=== PATIENT | female | born 1970 | race Caucasian/White ===

== ENCOUNTER 2022-02-17 10:07 | Emergency (ER) | payer OTHER ==
[2022-02-17 10:24] VITALS: BP 128/76; PULSE 114; RESP 22; TEMP 98.6
[2022-02-17] MEDS ORDERED: HYDROmorphone 0.5 MG/0.5 ML SYRINGE IM STA (10:57)
[2022-02-17] MEDS ORDERED: LIDOCAINE 1% INJ 10MG/ML (5 ML VIAL-PF) SQ ONE (10:57)
[2022-02-17] MEDS ORDERED: SULFAMETHOX-TMP 800-160MG 1 EACH TAB PO STA (10:58)
--- NOTE | 2022-02-17 12:23 | ED ---
Skin/Abscess/FB HPI - General Chief complaint: Skin/Abscess/Foreign Body Stated complaint: Abcess/groin pain Time Seen by Provider: 02/17/22 10:26 Source: patient, RN notes reviewed Mode of arrival: ambulatory Limitations: no limitations - History of Present Illness Initial comments: This is a 51-year-old female who presents to the emergency department for an abscess to the lower abdomen. Patient states that she frequently gets very similar abscesses, however they always resolve on their own and she has never had to have them drained. Her roommate bought her [id number] Boil-Ease, which she states did improve symptoms. She does continue to have significant pain and swelling to the right side of the lower abdomen. She has not had any drainage from the wound, and she has not tried squeezing it. This abscess has been progressing over the last week. Denies any fevers, chills, sore throat, cough, dyspnea, chest pain, palpitati ons, nausea, vomiting, diarrhea, back pain, or headaches. MD complaint: abscess/boil Onset/Timin -: week(s) Treatments Prior to Arrival: OTC topical medication - Related Data Previous Rx's Medication Instructions Recorded Baclofen 10 mg PO TID #20 tab 09/05/15 Butalb/APAP/Caff 50-325-40Mg 1 tab PO BID #15 tablet 09/05/15 [Fioricet 50-325-40] Gabapentin 600 mg PO TID 10 Days tab 09/05/15 Ibuprofen [Motrin] 800 mg PO TID #30 tab 09/05/15 Sulfamethox-Tmp 800-160Mg [Bactrim 2 each PO Q12HR 7 Days #28 tab 02/17/22 Ds] Allergies Allergy/AdvReac Type Severity Reaction Status Date / Time Yeast Allergy Unknown Verified 02/17/22 10:24 heparin AdvReac Unknown Verified 02/17/22 10:24 Review of Systems ROS Statement: Those systems with pertinent positive or pertinent negative responses have been documented in the HPI. ROS Other: All systems not noted in ROS Statement are negative. Past Medical History Past Medical History: GERD/Reflux, Hypertension, Osteoarthritis (OA), Pulmonary Embolus (PE), Sleep Apnea/CPAP/BIPAP Additional Past Medical History / Comment(s): back pain ddd sleep apnea, neuropathy History of Any Multi-Drug Resistant Organisms: None Reported, MRSA Date of last positivie culture/infection: 2007 MDRO Source:: face Past Surgical History: Adenoidectomy, Section, Orthopedic Surgery, Tonsillectomy Additional Past Surgical History / Comment(s): lung surgery, sinus surgery Past Psychological History: ADD/ADHD, Anxiety, Depression Smoking Status: Former smoker Past Alcohol Use History: Rare Past Drug Use History: None Reported General Exam Limitations: no limitations General appearance: alert, in distress Head exam: Present: atraumatic, normocephalic, normal inspection Respiratory exam: Present: normal lung sounds bilaterally. Absent: respiratory distress, wheezes, rales, rhonchi, stridor Cardiovascular Exam: Present: regular rate, normal rhythm, normal heart sounds. Absent: systolic murmur, diastolic murmur, rubs, gallop, clicks Neurological exam: Present: alert, oriented X3, CN II-XII intact Psychiatric exam: Present: normal affect, normal mood Skin exam: Present: other (Palpable fluctuant abscess measuring approximately 3cm underneath the right lower abdominal fold with 2 pinpoint areas that may represent recent drainage. There is significant surrounding induration and erythema. The area is also very warm and tender.) Course Vital Signs 02/17/22 10:21 Temperature 98.6 F Pulse Rate 114 H Respiratory 22 Rate Blood Pressure 128/76 O2 Sat by Pulse 95 Oximetry Procedures - Incision & Drainage Consent Obtained: verbal consent Indication: Abscess Site: abdomen Size (cm): 3 Anesthetic Used: lidocaine 1% Amount (mLs): 3 I&D Cleaning Method: Alcohol Wipe Sterile Field Used?: Yes Scalpel Used: #11 Needle Aspiration Performed?: No Irrigation Performed?: Yes I&D Drainage Obtained: Pus, Blood Culture Obtained?: Yes Medical Decision Making - Medical Decision Making This is a 51-year-old female who presents to the emergency department for an abscess on the abdomen. I&D was performed and a copious amount of purulent and serosanguineous fluid was expressed. Cultures were obtained. Patient given 1 dose of Bactrim in the emergency department. Patient will be discharged on a course of Bactrim as well, as she has a history of MRSA and this was purulent. While waiting in the exam room, patient began to develop abdominal muscle spasms. She states that this is a chronic problem for her and she takes Flexeril 3 times daily, however she notes that this is not very effective. Patient given IM Norflex in the emergency department. Patient advised that the abscess will continue to drain over the next few days, which should not be alarming. She is advised to apply hot compresses and keep the area covered. Also advised to take the antibiotics as prescribed and to take Ibuprofen and Tylenol for pain relief. She'll need to follow-up with her primary care provider in the next few days to ensure that this is healing well. We did discuss that there is always a chance for abscesses to recur, and she may need an I&D again in the future if it does recur. Patient expresses understanding. Return precautions reviewed in depth, the patient is instructed to return to the emergency department with any new, worsening, or concerning symptoms. Patient verbalized understanding. This case was discussed in detail with the attending ED physician. Presentation, findings, and treatment plan discussed in detail as well. Disposition Clinical Impression: Abscess, abdomen Disposition: HOME SELF-CARE Instructions (If sedation given, give patient instructions): Abscess Incision and Drainage (ED), Abscess (ED) Additional Instructions: Return to the emergency department with any new, worsening, or concerning sym ptoms. Expect drainage for the next few days. Take the antibiotic as prescribed. Apply hot compresses to further express any fluids. Follow up with your primary care provider in 1-2 days. Prescriptions: Sulfamethox-Tmp 800-160Mg [Bactrim Ds] 2 each PO Q12HR 7 Days #28 tab Is patient prescribed a controlled substance at d/c from ED?: No Referrals: Vernon Kramer [Primary Care Provider] - 1-2 days
[2022-02-17] MEDS ORDERED: ORPHENADRINE 30 MG/ML 2 ML VIAL IM STA (12:35)
== END 2022-02-17 12:58 | disposition home or self-care (01) ==
LOC: EC 10:07
DX: K65.1 Peritoneal abscess (principal); K21.9 Gastro-esophageal reflux disease without esophagitis; Z79.83 Long term (current) use of bisphosphonates; I10 Essential (primary) hypertension; Z87.891 Personal history of nicotine dependence; Z88.8 Allergy status to other drugs, medicaments and biological substances; Z91.018 Allergy to other foods
CPT/HCPCS: 87070; 87205; 10060; 99283; 96372; J2360; J2001; J1170

== ENCOUNTER → 2022-03-17 | Outpatient (CLI) | payer MEDICARE, OTHER | END | disposition home or self-care (01) | LOC: CPPFTMAIN 14:41 | PROVIDERS: ATTEND Family Medicine | DX: R06.2 Wheezing (principal) | CPT/HCPCS: 94060; 94726; 94729 ==

== ENCOUNTER → 2022-04-07 | Outpatient (CLI) | payer MEDICARE, OTHER ==
--- NOTE | 2022-04-07 19:27 | CT ---
EXAMINATION TYPE: CT abdomen pelvis w con CT DLP: 2436 mGycm, Automated exposure control for dose reduction was used. DATE OF EXAM: 04/07/2022 6:12 PM COMPARISON: None. CLINICAL INDICATION:Female, 52 years old with history of K46.9 UNSPECIFIED ABDOMINAL HERNIA; abdomina l hernia TECHNIQUE: Axial CT of the abdomen and pelvis. Sagittal and coronal reformats were created on a [employer] workstation. Contrast used:100 mL of Isovue 300 with IV Contrast, Oral contrast used: with Oral Contrast FINDINGS: LOWER CHEST: Unremarkable ABDOMEN LIVER: Diffusely hypoattenuating parenchyma. GALLBLADDER AND BILE DUCTS: Fundal adenomyomatosis suggested. PANCREAS: Unremarkable. SPLEEN: Unremarkable. ADRENAL GLANDS: Unremarkable. KIDNEYS AND URETERS: No evidence of hydronephrosis or renal calculus. The ureters are unremarkable. PELVIS BLADDER: Unremarkable REPRODUCTIVE: Unremarkable. ABDOMEN & PELVIS STOMACH AND BOWEL: No evidence of bowel obstruction. Appendix is normal. Scattered clonic diverticula are seen throughout the colon. PERITONEUM: No evidence of pneumoperitoneum or free fluid. VASCULATURE: Mild atherosclerotic calcifications are present throughout the abdominal aorta and its b ranches. No evidence of aortic aneurysm. MUSCULOSKELETAL: No acute osseous abnormalities. Mild disc degeneration changes are present throughou t the thoracolumbar spine. Multilevel disc degeneration changes throughout the lumbar spine with at l east mild spinal canal stenosis. LYMPH NODES: No gross evidence for lymphadenopathy. SOFT TISSUE/ABDOMINAL WALL: Fat filled umbilical hernia measuring 0.7 cm at the neck. Diastases of th e rectus abdominis. IMPRESSION: 1. Small fat-containing umbilical hernia. No additional hernias identified. 2. No evidence for acute intra-abdominal process. 3. Colonic diverticulosis. 4. Hepatic steatosis 5. Gallbladder fundal adenomyomatosis suggested.
== END | disposition home or self-care (01) ==
LOC: RADCTMAIN 15:41
PROVIDERS: ATTEND Family Medicine
DX: K46.9 Unspecified abdominal hernia without obstruction or gangrene (principal)
CPT/HCPCS: 74177; Q9967

== ENCOUNTER → 2022-06-26 | Outpatient (CLI) | payer MEDICARE, OTHER ==
--- NOTE | 2022-06-26 10:19 | MR ---
EXAMINATION TYPE: MR lumbar spine wo/w con DATE OF EXAM: 06/26/2022 COMPARISON: Plain film 02/27/2015 HISTORY: Lumbar Spinal Stenosis, chronic pain TECHNIQUE: Multiplanar, multisequence images of the lumbar spine were acquired without and with 11 mL intravenou s Gadavist gadolinium contrast. There are only 4 lumbar nonrib-bearing vertebral bodies, correlate with plain film or CT prior to any intervention L1-L2: Normal disc appearance without desiccation. No herniation, protrusion or disc bulging. No ca nal stenosis is present. Foramina are patent bilaterally. L2-L3: Posterior disc bulge causes slight anterior mass effect on the thecal sac. No significant fora lidia encroachment. There is facet arthropathy change. L3-L4: Posterior broad-based disc bulge extensor compartment to cause foraminal encroachment more so on the right than on the left, posterior broad-based disc bulge causes anterior mass effect on the th ecal sac. There is facet arthropathy change. L4-S1: Posterior central disc herniation causes mild anterior mass effect on the thecal sac, circumfe rential extension endplate disc complex causes encroachment of the bilateral foramina. Facet arthropa thy changes present. There is likely mass effect due to the posterior disc herniation in the left pos terior paracentral location on the left S1 nerve root. Lumbar segments are intact. No paraspinal masses are identified. Conus medullaris has a normal appe arance and terminates at T12. No significant spinal stenosis. Loss of disc height signal is present a t intervertebral levels consistent with disc desiccation and degenerative disc disease, L1-T12 L1 rel atively spared. There is multilevel spondylosis with endplate discogenic marrow signal change. Vacuum phenomenon present at intervertebral levels L2-3, L4 S1, L3-4. Following contrast administration no significant abnormal enhancement. There is some motion on exam, artifact. Cortical cyst present at the lower pole the right kidney. IMPRESSION: Degenerative disc disease, facet arthropathy, multilevel foraminal encroachment. Correlate for left S 1 radiculopathy.
== END | disposition home or self-care (01) ==
LOC: RADMAMWWP 07:25
PROVIDERS: ATTEND Family Medicine
DX: Z12.31 Encounter for screening mammogram for malignant neoplasm of breast (principal); M48.061 Spinal stenosis, lumbar region without neurogenic claudication; G62.9 Polyneuropathy, unspecified
CPT/HCPCS: 77067; 77063; 72158; A9585

== ENCOUNTER → 2022-06-30 | Outpatient (CLI) | payer MEDICARE, OTHER | END | disposition home or self-care (01) | LOC: LABWHC1 10:41 | PROVIDERS: ATTEND Family Medicine | DX: Z01.818 Encounter for other preprocedural examination (principal) | CPT/HCPCS: 36415; 93005 ==

== ENCOUNTER 2022-07-12 17:52 | Emergency (ER) | payer MEDICARE, OTHER ==
[2022-07-12 18:03] VITALS: BP 170/80; PULSE 94; TEMP 98.8
[2022-07-12] MEDS ORDERED: CEPHALEXIN 500 MG CAP PO STA (19:55)
[2022-07-12] MEDS ORDERED: MORPHINE SULFATE 4 MG/ML SYRINGE IM STA (19:55)
[2022-07-12] MEDS ORDERED: SULFAMETHOX-TMP 800-160MG 1 EACH TAB PO STA (19:55)
--- NOTE | 2022-07-12 20:24 | ED ---
General Adult HPI - General Chief complaint: Vaginal Bleeding Stated complaint: Post-op issues Time Seen by Provider: 07/12/22 19:35 Source: patient Mode of arrival: ambulatory Limitations: no limitations - History of Present Illness Initial comments: Patient is a 52-year-old female presenting with chief complaint of pain and discharge from the biopsy site. About one week ago patient had labial biopsy performed by Dr. Leon at [facility]. Patient states that for the last 2 days she has noted increasing pain, she also notes a discharge that is light red in color. Patient states that she cannot sit without extreme discomfort. Patient has been cleaning the area as instructed and gabbing to dry. She denies any fever, chills, nausea, vomiting, abdominal pain, vaginal bleeding or discharge, chest pain, difficulty breathing. - Related Data Previous Rx's Medication Instructions Recorded Baclofen 10 mg PO TID #20 tab 09/05/15 Butalb/APAP/Caff 50-325-40Mg 1 tab PO BID #15 tablet 09/05/15 [Fioricet 50-325-40] Gabapentin 600 mg PO TID 10 Days tab 09/05/15 Ibuprofen [Motrin] 800 mg PO TID #30 tab 09/05/15 Sulfamethox-Tmp 800-160Mg [Bactrim 2 each PO Q12HR 7 Days #28 tab 02/17/22 Ds] Cephalexin [Keflex] 500 mg PO Q6HR 7 Days #28 cap 07/12/22 Sulfamethox-Tmp 800-160Mg [Bactrim 1 tab PO Q12HR 7 Days #14 tab 07/12/22 DS 800-160 mg] Allergies Allergy/AdvReac Type Severity Reaction Status Date / Time Yeast Allergy Unknown Verified 02/17/22 10:24 heparin AdvReac Unknown Verified 02/17/22 10:24 Review of Systems ROS Statement: Those systems with pertinent positive or pertinent negative responses have been documented in the HPI. ROS Other: All systems not noted in ROS Statement are negative. Past Medical History Past Medical History: CVA/TIA, GERD/Reflux, Hypertension, Osteoarthritis (OA), Pulmonary Embolus (PE), Sleep Apnea/CPAP/BIPAP Additional Past Medical History / Comment(s): back pain ddd sleep apnea, neuropathy History of Any Multi-Drug Resistant Organisms: None Reported, MRSA Date of last positivie culture/infection: 2007 MDRO Source:: face Past Surgical History: Adenoidectomy, Section, Orthopedic Surgery, Tonsillectomy Additional Past Surgical History / Comment(s): lung surgery, sinus surgery Past Psychological History: ADD/ADHD, Anxiety, Depression Smoking Status: Former smoker Past Alcohol Use History: Rare Past Drug Use History: None Reported General Exam Limitations: no limitations General appearance: alert, in no apparent distress Head exam: Present: atraumatic, normocephalic, normal inspection Eye exam: Present: normal appearance Neck exam: Present: normal inspection Respiratory exam: Present: normal lung sounds bilaterally. Absent: respiratory distress, wheezes, rales, rhonchi, stridor Cardiovascular Exam: Present: regular rate, normal rhythm, normal heart sounds. Absent: systolic murmur, diastolic murmur, rubs, gallop, clicks Expanded Female exam: Present: vulvar erythema, vulvar tenderness (at biopsy site, small amount of discharge noted, sutures are in place) Neurological exam: Present: alert, oriented X3, CN II-XII intact Psychiatric exam: Present: normal affect, normal mood Course Vital Signs 07/12/22 07/12/22 17:59 20:55 Temperature 98.8 F Pulse Rate 94 Respiratory 20 16 Rate Blood Pressure 170/80 O2 Sat by Pulse 97 Oximetry Medical Decision Making - Medical Decision Making Patient is a 52-year-old female presenting with chief complaint of pain and discharge from her labial biopsy site. Biopsy was performed approximately one week ago. On inspection there is erythema and tenderness around the site, there is small amount of discharge appreciated. Patient will be treated for cellulitis with Keflex and Bactrim, instructed to follow-up with her [employer] [employer] TECHNICIAN this week. Follow-up with PCP. Report back to ER with any new or worsening symptoms. Discussed return parameters and answered all questions. Patient conveyed verbal understanding and agreed to the plan. I discussed this case in detail with my attending Dr. Barrios Disposition Clinical Impression: Infection of labia Disposition: HOME SELF-CARE Condition: Fair Instructions (If sedation given, give patient instructions): Cellulitis (ED) Additional Instructions: Follow up with [facility]AT[facility] TECHNICIAN. Report back to ER with any new or worsening symptoms. Take medication as prescribed. Prescriptions: Sulfamethox-Tmp 800-160Mg [Bactrim DS 800-160 mg] 1 tab PO Q12HR 7 Days #14 tab Cephalexin [Keflex] 500 mg PO Q6HR 7 Days #28 cap Is patient prescribed a controlled substance at d/c from ED?: No Referrals: Russell Ruelas MD [Primary Care Provider] - 1-2 days Luis Angel Leon DO [REFERRING] - 1-2 days Time of Disposition: 20:23
[2022-07-12 20:56] VITALS: RESP 16
== END 2022-07-12 20:56 | disposition home or self-care (01) ==
LOC: EC 17:52
DX: T88.9XXA Complication of surgical and medical care, unspecified, initial encounter (principal); I10 Essential (primary) hypertension; G45.9 Transient cerebral ischemic attack, unspecified; K21.9 Gastro-esophageal reflux disease without esophagitis; M19.90 Unspecified osteoarthritis, unspecified site; I26.99 Other pulmonary embolism without acute cor pulmonale; F90.9 Attention-deficit hyperactivity disorder, unspecified type; F41.9 Anxiety disorder, unspecified; F32.A Depression, unspecified; Z87.891 Personal history of nicotine dependence; Z79.899 Other long term (current) drug therapy; Z79.811 Long term (current) use of aromatase inhibitors; Z91.018 Allergy to other foods
CPT/HCPCS: 99283; 96372; J2270

== ENCOUNTER 2023-09-14 17:27 | Emergency (ER) | payer OTHER ==
[2023-09-14 17:48] VITALS: TEMP 98.7
[2023-09-14] MEDS ORDERED: KETOROLAC 15 MG/ML 1 ML VIAL IVP STA (17:56)
--- NOTE | 2023-09-14 18:04 | ED ---
General Adult HPI - General Chief complaint: Abdominal Pain Stated complaint: Abd Pain,Diverticulitis Time Seen by Provider: 09/14/23 17:39 Source: patient, RN notes reviewed Mode of arrival: ambulatory Limitations: no limitations - History of Present Illness Initial comments: 53-year-old female presents to the emergency department for evaluation of lower abdominal pain 10 days. She states that she has a history of diverticulitis and this feels similar to previous flares. She admits to some recent constipation but she did have a bowel movement this morning. She admits to nausea without vomiting. Denies fever, chills. - Related Data Previous Rx's Medication Instructions Recorded Baclofen 10 mg PO TID #20 tab 09/05/15 Butalb/APAP/Caff 50-325-40Mg 1 tab PO BID #15 tablet 09/05/15 [Fioricet 50-325-40] Gabapentin 600 mg PO TID 10 Days tab 09/05/15 Ibuprofen [Motrin] 800 mg PO TID #30 tab 09/05/15 Sulfamethox-Tmp 800-160Mg [Bactrim 2 each PO Q12HR 7 Days #28 tab 02/17/22 Ds] Cephalexin [Keflex] 500 mg PO Q6HR 7 Days #28 cap 07/12/22 Sulfamethox-Tmp 800-160Mg [Bactrim 1 tab PO Q12HR 7 Days #14 tab 07/12/22 DS 800-160 mg] Amoxic-Pot Clav 875-125Mg 1 tab PO Q12HR #20 tab 09/14/23 [Augmentin 875-125] Allergies Allergy/AdvReac Type Severity Reaction Status Date / Time Yeast Allergy Unknown Verified 02/17/22 10:24 heparin AdvReac Unknown Verified 02/17/22 10:24 Review of Systems ROS Statement: Those systems with pertinent positive or pertinent negative responses have been documented in the HPI. ROS Other: All systems not noted in ROS Statement are negative. Past Medical History Past Medical History: CVA/TIA, GERD/Reflux, Hypertension, Osteoarthritis (OA), Pulmonary Embolus (PE), Sleep Apnea/CPAP/BIPAP Additional Past Medical History / Comment(s): back pain ddd sleep apnea, neuropathy, diverticulitis History of Any Multi-Drug Resistant Organisms: None Reported, MRSA Date of last positivie culture/infection: 2007 MDRO Source:: face Past Surgical History: Adenoidectomy, Section, Orthopedic Surgery, Tonsillectomy Additional Past Surgical History / Comment(s): lung surgery, sinus surgery Past Psychological History: ADD/ADHD, Anxiety, Depression Smoking Status: Former smoker Past Alcohol Use History: Rare Past Drug Use History: None Reported General Exam Limitations: no limitations General appearance: alert, in no apparent distress Head exam: Present: atraumatic, normocephalic, normal inspection Eye exam: Present: normal appearance, PERRL, EOMI. Absent: scleral icterus, conjunctival injection, periorbital swelling ENT exam: Present: normal exam, mucous membranes moist Neck exam: Present: normal inspection. Absent: tenderness, meningismus, lymphadenopathy Respiratory exam: Present: normal lung sounds bilaterally. Absent: respiratory distress, wheezes, rales, rhonchi, stridor Cardiovascular Exam: Present: regular rate, normal rhythm, normal heart sounds. Absent: systolic murmur, diastolic murmur, rubs, gallop, clicks GI/Abdominal exam: Present: distended (Mild), tenderness, normal bowel sounds. Absent: soft, guarding, rebound, rigid Extremities exam: Present: normal inspection, full ROM, normal capillary refill. Absent: tenderness, pedal edema, joint swelling, calf tenderness Back exam: Present: normal inspection Neurological exam: Present: alert, oriented X3 Psychiatric exam: Present: normal affect, normal mood Skin exam: Present: warm, dry, intact, normal color. Absent: rash Course Vital Signs 09/14/23 09/14/23 09/14/23 17:34 19:08 21:19 Temperature 98.7 F 98.7 F Pulse Rate 83 74 82 Respiratory 16 18 18 Rate Blood Pressure 183/83 168/93 160/92 O2 Sat by Pulse 98 96 98 Oximetry Medical Decision Making - Medical Decision Making Was pt. sent in by a medical professional or institution (, PA, STOCK TRACER, urgent care, hospital, or senior living...) When possible be specific @ -No Did you speak to anyone other than the patient for history (EMS, parent, family, police, friend...)? What history was obtained from this source @ -No Did you review nursing and triage notes (agree or disagree)? Why? @ -I reviewed and agree with nursing and triage notes Were old charts reviewed (outside hosp., previous admission, EMS record, old EKG, old radiological studies, urgent care reports/EKG's, senior living records)? Report findings @ -No old charts were reviewed Differential Diagnosis (chest pain, altered mental status, abdominal pain women, abdominal pain men, vaginal bleeding, weakness, fever, dyspnea, syncope, headache, dizziness, GI bleed, back pain, seizure, CVA, palpatations, mental health, musculoskeletal)? @ -Differential Abdominal Pain Women: Appendicitis, Cholecystitis, diverticulosis, ischemic bowel, pancreatitis, hepatitis, UTI, gastroenteritis, AAA, incarcerated hernia, bowel obstruction, constipation, inflammatory bowel, hepatitis, peptic ulcer disease, splenic infarction, perforated viscus, vulvitis, ovarian torsion, PID, kidney stone, placenta abruption, this is not meant to be an all-inclusive list EKG interpreted by me (3pts min.). @ -none X-rays interpreted by me (1pt min.). @ -None done CT interpreted by me (1pt min.). @ -CT abdomen and pelvis shows uncomplicated sigmoid diverticulitis U/S interpreted by me (1pt. min.). @ -None done What testing was considered but not performed or refused? (CT, X-rays, U/S, labs)? Why? @ -None What meds were considered but not given or refused? Why? @ -None Did you discuss the management of the patient with other professionals (professionals i.e. , PA, STOCK TRACER, lab, RT, psych nurse, social worker assistant, customer counter associate, teacher, personnel officer, director of casework services)? Give summary @ -No Was smoking cessation discussed for >3mins.? @ -No Was critical care preformed (if so, how long)? @ -No Were there social determinants of health that impacted care today? How? (Homelessness, low income, unemployed, alcoholism, drug addiction, transportation, low edu. Level, literacy, decrease access to med. care, fpc, rehab)? @ -No Was there de-escalation of care discussed even if they declined (Discuss DNR or withdrawal of care, Hospice)? DNR status @ -No What co-morbidities impacted this encounter? (DM, HTN, Smoking, COPD, CAD, Cancer, CVA, ARF, Chemo, Hep., AIDS, mental health diagnosis, sleep apnea, morbid obesity)? @ -None Was patient admitted / discharged? Hospital course, mention meds given and route, prescriptions, significant lab abnormalities, going to OR and other pertinent info. @ -Discharged. Patient presented to the emergency department for evaluation of lower abdominal pain with a history of diverticulosis. Laboratory studies obtained. CBC shows WBC 9.5, hgb 12.2; CMP unremarkable. Abdomen and pelvis shows diverticulitis without perforation or abscess formation. Patient stable for discharge with outpatient treatment. Antibiotics sent to patient's pharmacy. Advised patient to continue to completion. Patient understands agreeable plan. Patient stable at time of discharge. Case discussed with Dr. Norwood Undiagnosed new problem with uncertain prognosis? @ -No Drug Therapy requiring intensive monitoring for toxicity (Heparin, Nitro, Insulin, Cardizem)? @ -No Were any procedures done? @ -No Diagnosis/symptom? @ -diverticulitis Acute, or Chronic, or Acute on Chronic? @ -acute Uncomplicated (without systemic symptoms) or Complicated (systemic symptoms)? @ -uncomplicated Side effects of treatment? @ -No Exacerbation, Progression, or Severe Exacerbation? @ -No Poses a threat to life or bodily function? How? (Chest pain, USA, [place], pneumonia, PE, COPD, DKA, ARF, appy, cholecystitis, CVA, Diverticulitis, Homicidal, Suicidal, threat to staff... and all critical care pts) @ -No - Lab Data Result diagrams: 09/14/23 18:33 09/14/23 18:33 Lab Results 09/14/23 09/14/23 09/14/23 Range/Units 18:33 18:33 18:33 WBC 9.5 (3.8-10.6) k/uL RBC 4.99 (3.80-5.40) m/uL Hgb 12.2 (11.4-16.0) gm/dL Hct 37.9 (34.0-46.0) % MCV 75.8 L (80.0-100.0) fL MCH 24.3 L (25.0-35.0) pg MCHC 32.1 (31.0-37.0) g/dL RDW 16.6 H (11.5-15.5) % Plt Count 298 (150-450) k/uL MPV 7.5 Neutrophils % 65 % Lymphocytes % 27 % Monocytes % 5 % Eosinophils % 2 % Basophils % 0 % Neutrophils # 6.2 (1.3-7.7) k/uL Lymphocytes # 2.6 (1.0-4.8) k/uL Monocytes # 0.4 (0-1.0) k/uL Eosinophils # 0.2 (0-0.7) k/uL Basophils # 0.0 (0-0.2) k/uL Hypochromasia Slight Poikilocytosis Slight Anisocytosis Slight Microcytosis Slight Sodium 141 (137-145) mmol/L Potassium 3.8 (3.5-5.1) mmol/L Chloride 103 (98-107) mmol/L Carbon Dioxide 28 (22-30) mmol/L Anion Gap 10 mmol/L BUN 12 (7-17) mg/dL Creatinine 0.61 (0.52-1.04) mg/dL Est GFR (CKD-EPI)AfAm >90 (>60 ml/min/1.73 sqM) Est GFR (CKD-EPI)NonAf >90 (>60 ml/min/1.73 sqM) Glucose 77 (74-99) mg/dL Plasma Lactic Acid Amor 0.9 (0.7-2.0) mmol/L Calcium 9.5 (8.4-10.2) mg/dL Total Bilirubin 0.6 (0.2-1.3) mg/dL AST 31 (14-36) U/L ALT 23 (4-34) U/L Alkaline Phosphatase 77 (38-126) U/L Total Protein 6.6 (6.3-8.2) g/dL Albumin 4.1 (3.5-5.0) g/dL Amylase 42 (30-110) U/L Lipase 136 (23-300) U/L Disposition Clinical Impression: Diverticulitis Disposition: HOME SELF-CARE Condition: Stable Instructions (If sedation given, give patient instructions): Diverticulitis (ED) Additional Instructions: Please parts picker antibiotics take to completion. Follow up with your primary care provider. Return to the emergency department for new or worsening symptoms. Prescriptions: Amoxic-Pot Clav 875-125Mg [Augmentin 875-125] 1 tab PO Q12HR #20 tab Is patient prescribed a controlled substance at d/c from ED?: No Referrals: Russell Ruelas MD [Primary Care Provider] - 1-2 days
[2023-09-14 18:57] LABS: ALT 23 U/L (4-34); AST 31 U/L (14-36); African American GFR (CKD) >90 (>60 ml/min/1.73 sqM); Albumin 4.1 g/dL (3.5-5.0); Alkaline Phosphatase 77 U/L (38-126); Amylase 42 U/L (30-110); Anion Gap 10 mmol/L; Blood Urea Nitrogen 12 mg/dL (7-17); Calcium 9.5 mg/dL (8.4-10.2); Carbon Dioxide 28 mmol/L (22-30); Chloride 103 mmol/L (98-107); Glucose 77 mg/dL (74-99); Lipase 136 U/L (23-300); Non-African American GFR(CKD) >90 (>60 ml/min/1.73 sqM); Potassium 3.8 mmol/L (3.5-5.1); Sodium 141 mmol/L (137-145); Total Bilirubin 0.6 mg/dL (0.2-1.3); Total Protein 6.6 g/dL (6.3-8.2)
[2023-09-14 19:01] LABS: Anisocytosis Slight; Basophils % (A) 0 %; Eosinophils # (A) 0.2 k/uL (0-0.7); Eosinophils % (A) 2 %; HCT 37.9 % (34.0-46.0); HGB 12.2 gm/dL (11.4-16.0); Hypochromasia Slight; Lymphocytes # (A) 2.6 k/uL (1.0-4.8); Lymphocytes % (A) 27 %; MCH 24.3 pg (25.0-35.0); MCHC 32.1 g/dL (31.0-37.0); MCV 75.8 fL (80.0-100.0); Mean Platelet Volume 7.5; Microcytosis Slight; Monocytes # (A) 0.4 k/uL (0-1.0); Monocytes % (A) 5 %; Neutrophils # (A) 6.2 k/uL (1.3-7.7); Neutrophils % (A) 65 %; Platelet Count 298 k/uL (150-450); Poikilocytosis Slight; RBC 4.99 m/uL (3.80-5.40); RDW 16.6 % (11.5-15.5); WBC 9.5 k/uL (3.8-10.6)
[2023-09-14 19:17] VITALS: RESP 18
--- NOTE | 2023-09-14 20:23 | CT ---
EXAMINATION TYPE: CT abdomen pelvis w con CT DLP: 1690.5 mGycm, Automated exposure control for dose reduction was used. DATE OF EXAM: 09/14/2023 7:37 PM COMPARISON: CT abdomen pelvis most recent from 04/07/2022 CLINICAL INDICATION:Female, 53 years old with history of abdominal pain; Lower abdominal/pelvic swell ing, history of inverted polyps. TECHNIQUE: Axial CT abdomen pelvis w con;Sagittal and coronal reformats were created on a separate w orkstation. Contrast used:100ml mL of Isovue 300 with IV Contrast, (none if empty) Oral contrast used: without Oral Contrast (none if empty) FINDINGS: LOWER CHEST: Unremarkable ABDOMEN LIVER: Unremarkable GALLBLADDER AND BILE DUCTS: Calcified gallstone layering dependently. Fundal adenomyomatosis. PANCREAS: Unremarkable. SPLEEN: Spleen is enlarged measuring up to 15.1 cm. ADRENAL GLANDS: Unremarkable. KIDNEYS AND URETERS: No evidence of hydronephrosis or renal calculus. The ureters are unremarkable. PELVIS BLADDER: Unremarkable REPRODUCTIVE: Unremarkable. ABDOMEN & PELVIS STOMACH AND BOWEL: There are colonic diverticula present, one of which has adjacent fat stranding jessica nges. No organizing fluid collection or evidence of pneumoperitoneum. No evidence of bowel obstructio n. The appendix is normal. PERITONEUM/RETROPERITONEUM: No evidence of pneumoperitoneum or free fluid. VASCULATURE: Mild atherosclerotic calcifications are present throughout the abdominal aorta and its b ranches. No evidence of aortic aneurysm. MUSCULOSKELETAL: No acute osseous abnormalities. Mild disc degeneration changes are present throughou t the thoracolumbar spine. LYMPH NODES: No gross evidence for lymphadenopathy. SOFT TISSUE/ABDOMINAL WALL: Fat-containing umbilical hernia. IMPRESSION: 1. Sigmoid colonic diverticulitis without evidence for perforation or organizing fluid collection to suggest abscess. 2. Cholelithiasis. 3. Splenomegaly.
[2023-09-14] MEDS ORDERED: AMOXIC-POT CLAV 875-125MG 1 EACH TAB PO STA (20:46)
[2023-09-14 21:27] VITALS: BP 160/92; PULSE 82
== END 2023-09-14 21:20 | disposition home or self-care (01) ==
LOC: EC 17:27
DX: K57.32 Diverticulitis of large intestine without perforation or abscess without bleeding (principal); K80.20 Calculus of gallbladder without cholecystitis without obstruction; I10 Essential (primary) hypertension; G47.30 Sleep apnea, unspecified; Z86.59 Personal history of other mental and behavioral disorders; Z87.891 Personal history of nicotine dependence; Z91.018 Allergy to other foods; Z88.8 Allergy status to other drugs, medicaments and biological substances
CPT/HCPCS: 36415; 80053; 82150; 83605; 83690; 85025; 74177; 99284; 96374; J1885; Q9967

== ENCOUNTER → 2024-01-07 | Outpatient (CLI) | payer MEDICARE ==
[2024-01-07 16:02] LABS: African American GFR (CKD) >90 (>60 ml/min/1.73 sqM); Blood Urea Nitrogen 14 mg/dL (7-17); Non-African American GFR(CKD) >90 (>60 ml/min/1.73 sqM)
--- NOTE | 2024-01-08 13:13 | CT ---
EXAMINATION TYPE: CT soft tissue neck w con DATE OF EXAM: 01/07/2024 COMPARISON: No prior soft tissue neck HISTORY: LOCALIZED ENLARGED LYMPH NODES CT DLP: 645 mGycm CONTRAST: Patient injected with 100ml mL of Isovue 300. TECHNIQUE: Axial images at 3 mm thick sections. Reconstructed images in the coronal plane and sagitt al plane are reviewed. FINDINGS: Limited CT sections are obtained the lung apices. The lung apices appear clear. CT neck: The torus tubarius and fossa of Rosenmuller are normal. Settlement Agent spaces are normal. Para nasal sinuses and mastoid air cells are clear. Parotid glands appear normal and symmetrical. Submandibular glands, are normal. Parapharyngeal spac es are normal. No suspicious adenopathy is evident. There are scattered small lymph nodes present in cluding the submental region and submandibular regions. The hypopharynx appears within normal limits. Vocal cord level appear symmetrical. Thyroid appears slightly prominent. Right lobe thyroid in the inferior isthmus is heterogenous. Consi tariq follow-up with ultrasound. Osseous structures appear unremarkable. IMPRESSION: 1. No suspicious adenopathy. There are scattered small lymph nodes.
== END | disposition home or self-care (01) ==
LOC: RADCTMAIN 14:55
PROVIDERS: ATTEND Internal Medicine
DX: R59.0 Localized enlarged lymph nodes (principal)
CPT/HCPCS: 82565; 84520; 70491; 36415; Q9967

== ENCOUNTER 2024-05-01 13:15 | Emergency (ER) | payer MEDICARE ==
--- NOTE | 2024-05-01 14:36 | ED ---
General Adult HPI - General Chief complaint: Upper Respiratory Infection Stated complaint: cough,congestion Time Seen by Provider: 05/01/24 13:22 Source: patient Mode of arrival: ambulatory Limitations: no limitations - History of Present Illness Initial comments: Dictation was produced using Funk[employer] Android dictation software. please excuse any grammatical, word or spelling errors. Chief Complaint: 54-year-old female with cough and congestion History of Present Illness: Patient 54-year-old female with persistent and increasing cough and congestion. Patient states that her symptoms began 3-1/2 weeks ago started as a mild case of what she thought was a cold. States that her symptoms progressed and now she is having productive cough. States that she has sputum production that is yellow. She does have some mild chills. Denies any fevers. She does smoke. She takes anticoagulation medications for history of PE. The ROS documented in this emergency department record has been reviewed and confirmed by me. Those systems with pertinent positive or negative responses have been documented in the HPI. All other systems are other negative and/or noncontributory. - Related Data Home Medications Medication Instructions Recorded Confirmed Apixaban [Eliquis] 5 mg PO BID 05/01/24 05/01/24 Aspirin EC [Ecotrin Low Dose] 81 mg PO DAILY 05/01/24 05/01/24 Atorvastatin [Lipitor] 20 mg PO MOWEFR@2100 05/01/24 05/01/24 Baclofen 5 mg PO TID PRN 05/01/24 05/01/24 DULoxetine HCL [Cymbalta] 60 mg PO DAILY 05/01/24 05/01/24 HYDROcodone/APAP 7.5-325MG [Ira 1 tab PO BID PRN 05/01/24 05/01/24 7.5-325] Lidocaine 4% Patch 1 patch TRANSDERM DAILY PRN 05/01/24 05/01/24 Losartan [Cozaar] 50 mg PO DAILY 05/01/24 05/01/24 Meloxicam [Mobic] 15 mg PO DAILY 05/01/24 05/01/24 Metoprolol Succinate (ER) [Toprol 25 mg PO DAILY 05/01/24 05/01/24 Xl] Pregabalin [Lyrica] 150 mg PO TID 05/01/24 05/01/24 RABEprazole SODIUM [Aciphex] 20 mg PO DAILY 05/01/24 05/01/24 amLODIPine [Norvasc] 5 mg PO DAILY 05/01/24 05/01/24 glipiZIDE [Glucotrol] 10 mg PO BID 05/01/24 05/01/24 metFORMIN HCL 1,000 mg PO BID 05/01/24 05/01/24 sitaGLIPtin [Januvia] 100 mg PO DAILY 05/01/24 05/01/24 Previous Rx's Medication Instructions Recorded Levofloxacin [Levaquin] 750 mg PO DAILY 5 Days #5 tab 05/01/24 Allergies Allergy/AdvReac Type Severity Reaction Status Date / Time Yeast Allergy Allergy Verified 05/01/24 14:54 testing heparin AdvReac Unknown Verified 05/01/24 14:54 Review of Systems ROS Statement: Those systems with pertinent positive or pertinent negative responses have been documented in the HPI. ROS Other: All systems not noted in ROS Statement are negative. Past Medical History Past Medical History: CVA/TIA, GERD/Reflux, Hypertension, Osteoarthritis (OA), Pulmonary Embolus (PE), Sleep Apnea/CPAP/BIPAP Additional Past Medical History / Comment(s): back pain ddd sleep apnea, neuropathy, diverticulitis History of Any Multi-Drug Resistant Organisms: None Reported, MRSA Date of last positivie culture/infection: 2007 MDRO Source:: face Past Surgical History: Adenoidectomy, Section, Orthopedic Surgery, Tonsillectomy Additional Past Surgical History / Comment(s): lung surgery, sinus surgery Past Psychological History: ADD/ADHD, Anxiety, Depression Smoking Status: Former smoker Past Alcohol Use History: Rare Past Drug Use History: None Reported General Exam - General Exam Comments Initial Comments: PHYSICAL EXAM: General Impression: Alert and oriented x3, not in acute distress HEENT: Normocephalic atraumatic, extra-ocular movements intact, pupils equal and reactive to light bilaterally, mucous membranes moist. Cardiovascular: Heart regular rate and rhythm Chest: Able to complete full sentences, no retractions, no tachypnea, rhonchi to the right posterior lung robbins Abdomen: abdomen soft, non-tender, non-distended, no organomegaly Musculoskeletal: Pulses present and equal in all extremities, no peripheral edema Motor: no focal deficits noted Neurological: CN II-XII grossly intact, no focal motor or sensory deficits noted Skin: Intact with no visualized rashes Psych: Normal affect and mood Limitations: no limitations Course Vital Signs 05/01/24 05/01/24 13:17 15:31 Temperature 99.2 F 98.1 F Pulse Rate 94 81 Respiratory 20 18 Rate Blood Pressure 138/77 158/85 O2 Sat by Pulse 95 96 Oximetry Medical Decision Making - Medical Decision Making Was pt. sent in by a medical professional or institution (, PA, BONDING SUPERVISOR, urgent care, hospital, or longterm...) When possible be specific @ -No Did you speak to anyone other than the patient for history (EMS, parent, family, police, friend...)? What history was obtained from this source @ -No Did you review nursing and triage notes (agree or disagree)? Why? @ -I reviewed and agree with nursing and triage notes Were old charts reviewed (outside hosp., previous admission, EMS record, old EKG, old radiological studies, urgent care reports/EKG's, longterm records)? Report findings @ -No old charts were reviewed Differential Diagnosis (chest pain, altered mental status, abdominal pain women, abdominal pain men, vaginal bleeding, musculoskeletal, weakness, fever, dyspnea, syncope, headache, dizziness, GI bleed, back pain, seizure, CVA, palpatations, mental health)? @ -Differential Dyspnea: Coronary syndrome, arrhythmia, tamponade, asthma, COPD, pulmonary embolism, pneumonia, pneumothorax, pulmonary effusion, anaphylaxis, diabetic ketoacidosis, flailed chest, pulmonary contusion, diaphragmatic rupture, anemia, neuromuscular , this is not meant to be an all-inclusive list. EKG interpreted by me (3pts min.). @ -None done X-rays interpreted by me (1pt min.). @ -Chest x-ray shows right lower lobe infiltrate CT interpreted by me (1pt min.). @ -None done U/S interpreted by me (1pt. min.). @ -None done What testing was considered but not performed or refused? (CT, X-rays, U/S, labs)? Why? @ -None What meds were considered but not given or refused? Why? @ -None Was smoking cessation discussed for >3mins.? @ -No Were there social determinants of health that impacted care today? How? (Homelessness, low income, unemployed, alcoholism, drug addiction, transportation, low edu. Level, literacy, decrease access to med. care, intermediate, rehab)? @ -No Was there de-escalation of care discussed even if they declined (Discuss DNR or withdrawal of care, Hospice)? DNR status @ -No What co-morbidities impacted this encounter? (DM, HTN, Smoking, COPD, CAD, Cancer, CVA, ARF, Chemo, Hep., AIDS, mental health diagnosis, sleep apnea, morbid obesity)? @ -None Was patient admitted / discharged? Hospital course, mention meds given and route, prescriptions, significant lab abnormalities, going to OR and other pertinent info. @ -54-year-old female presents to the emergency department for respiratory infectious symptoms for several weeks. Vital signs upon arrival are within acceptable limits. Patient nonhypoxic. Patient has rhonchorous lungs to the right posterior robbins. X-ray shows pneumonia. Laboratory evaluation is unremarkable. No leukocytosis. Patient reevaluated at bedside at 4:00 PM plan to be stable condition. Patient prescribed Levaquin discharged advised follow- up with primary care doctor. Patient agreeable to plan. Did you discuss the management of the patient with other professionals (devante arroyo i.eCassandra Canales, PA, BONDING SUPERVISOR, lab, RT, psych nurse, public health social worker, glove cuffer, teacher, assistant chief nursing officer, patient case coordinator)? Give summary @ -No Was critical care preformed (if so, how long)? @ -No Undiagnosed new problem with uncertain prognosis? @ -No Drug Therapy requiring intensive monitoring for toxicity (Heparin, Nitro, Insulin, Cardizem)? @ -No Were any procedures done? @ -No Diagnosis/symptom? Acute, or Chronic, or Acute on Chronic? Uncomplicated (without systemic symptoms) or Complicated (systemic symptoms)? @ -Bacterial pneumonia Side effects of treatment? @ -No Exacerbation, Progression, or Severe Exacerbation? @ -No Poses a threat to life or bodily function? How? (Chest pain, [place], [place], pneumonia, PE, COPD, DKA, ARF, appy, cholecystitis, CVA, Diverticulitis, Homicidal, Suicidal, threat to staff... and all critical care pts) @ -yes - Lab Data Result diagrams: 05/01/24 15:10 05/01/24 15:10 Lab Results 05/01/24 05/01/24 Range/Units 15:10 15:10 WBC 8.3 (3.8-10.6) k/uL RBC 5.18 (3.80-5.40) m/uL Hgb 11.5 (11.4-16.0) gm/dL Hct 37.8 (34.0-46.0) % MCV 72.9 L (80.0-100.0) fL MCH 22.1 L (25.0-35.0) pg MCHC 30.4 L (31.0-37.0) g/dL RDW 19.2 H (11.5-15.5) % Plt Count 263 (150-450) k/uL MPV 6.7 Neutrophils % 63 % Lymphocytes % 28 % Monocytes % 5 % Eosinophils % 2 % Basophils % 0 % Neutrophils # 5.2 (1.3-7.7) k/uL Lymphocytes # 2.3 (1.0-4.8) k/uL Monocytes # 0.4 (0-1.0) k/uL Eosinophils # 0.2 (0-0.7) k/uL Basophils # 0.0 (0-0.2) k/uL Hypochromasia Marked Poikilocytosis Slight Anisocytosis Slight Microcytosis Moderate Sodium 140 (137-145) mmol/L Potassium 4.0 (3.5-5.1) mmol/L Chloride 106 (98-107) mmol/L Carbon Dioxide 28 (22-30) mmol/L Anion Gap 6 mmol/L BUN 11 (7-17) mg/dL Creatinine 0.60 (0.52-1.04) mg/dL Est GFR (CKD-EPI)AfAm >90 (>60 ml/min/1.73 sqM) Est GFR (CKD-EPI)NonAf >90 (>60 ml/min/1.73 sqM) Glucose 135 H (74-99) mg/dL Calcium 9.6 (8.4-10.2) mg/dL Disposition Clinical Impression: Pneumonia Disposition: HOME SELF-CARE Condition: Fair Instructions (If sedation given, give patient instructions): Bacterial Pneumonia (ED) Prescriptions: Levofloxacin [Levaquin] 750 mg PO DAILY 5 Days #5 tab Is patient prescribed a controlled substance at d/c from ED?: No Referrals: Edi Eller MD [Primary Care Provider] - 1-2 days Time of Disposition: 15:56
[2024-05-01 15:24] LABS: Anisocytosis Slight; Basophils % (A) 0 %; Eosinophils # (A) 0.2 k/uL (0-0.7); Eosinophils % (A) 2 %; HCT 37.8 % (34.0-46.0); HGB 11.5 gm/dL (11.4-16.0); Hypochromasia Marked; Lymphocytes # (A) 2.3 k/uL (1.0-4.8); Lymphocytes % (A) 28 %; MCH 22.1 pg (25.0-35.0); MCHC 30.4 g/dL (31.0-37.0); MCV 72.9 fL (80.0-100.0); Mean Platelet Volume 6.7; Microcytosis Moderate; Monocytes # (A) 0.4 k/uL (0-1.0); Monocytes % (A) 5 %; Neutrophils # (A) 5.2 k/uL (1.3-7.7); Neutrophils % (A) 63 %; Platelet Count 263 k/uL (150-450); Poikilocytosis Slight; RBC 5.18 m/uL (3.80-5.40); RDW 19.2 % (11.5-15.5); WBC 8.3 k/uL (3.8-10.6)
[2024-05-01 15:35] VITALS: RESP 18
[2024-05-01 15:38] LABS: African American GFR (CKD) >90 (>60 ml/min/1.73 sqM); Anion Gap 6 mmol/L; Blood Urea Nitrogen 11 mg/dL (7-17); Calcium 9.6 mg/dL (8.4-10.2); Carbon Dioxide 28 mmol/L (22-30); Chloride 106 mmol/L (98-107); Glucose 135 mg/dL (74-99); Non-African American GFR(CKD) >90 (>60 ml/min/1.73 sqM); Sodium 140 mmol/L (137-145)
--- NOTE | 2024-05-01 15:57 | XR ---
EXAMINATION TYPE: XR chest 2V DATE OF EXAM: 05/01/2024 COMPARISON: 05/29/2015 HISTORY: Cough TECHNIQUE: Frontal and lateral views of the chest are obtained. FINDINGS: There is no focal air space opacity, pleural effusion, or pneumothorax seen. The cardiac silhouette size is within normal limits. The osseous structures are intact. IMPRESSION: No acute cardiopulmonary process.
[2024-05-01 16:28] VITALS: BP 154/88; PULSE 86; TEMP 98.4
== END 2024-05-01 16:34 | disposition home or self-care (01) ==
LOC: EC 13:15
DX: J18.9 Pneumonia, unspecified organism (principal); Z86.73 Personal history of transient ischemic attack (TIA), and cerebral infarction without residual deficits; Z87.891 Personal history of nicotine dependence; Z88.8 Allergy status to other drugs, medicaments and biological substances; Z88.5 Allergy status to narcotic agent
CPT/HCPCS: 36415; 71046; 80048; 85025; 87636; 99283

== ENCOUNTER → 2024-07-12 | Outpatient (CLI) | payer MEDICARE ==
--- NOTE | 2024-07-20 11:25 | MM ---
Reason for Exam: Screening (asymptomatic). Last mammogram was performed 2 year(s) and 1 month(s) ago. Patient History: Menarche at age 8. First Full-Term at age 20. Postmenopausal. Risk Values: Olivia 5 year model risk: 1.2%. NCI Lifetime model risk: 7.9%. Prior Study Comparison: 12/28/2016 Bilateral MG 3D screening mammo w/cad, [place]. 10/02/2019 Bilateral MG 3D screening mammo w/cad, [place]. 06/26/2022 Bilateral MG 3D screening mammo w/cad, [facility]. Tissue Density: The breasts are almost entirely fatty. Findings: Analyzed By CAD. Right breast: There is no suspicious group of microcalcifications or new suspicious mass. Left breast: There is no suspicious group of microcalcifications or new suspicious mass. Overall Assessment: Negative, BI-RAD 1 Management: Screening Mammogram of both breasts in [address] [facility] will attempt to contact patient to return for supplemental views and ultrasound if indicated. Patient should continue monthly self-breast exams. A clinical breast exam by your physician is recommended on an annual basis. This exam should not preclude additional follow-up of suspicious palpable abnormalities. Note on Olivia scores and lifetime risk: 1. A Olivia score greater than 3% is considered moderate risk. If this is the case, consider specialist referral to assess eligibility for a risk reducing agent. 2. If overall lifetime risk for the development of breast cancer is 20% or higher, the patient may qualify for future screening with alternating mammogram and breast MRI. [facility], , 07/20/2024 11:22 AM. Electronically signed and approved by: Hung Hunter DO
== END | disposition home or self-care (01) ==
LOC: RADMAMWWP 14:23
PROVIDERS: ATTEND Internal Medicine
DX: Z12.31 Encounter for screening mammogram for malignant neoplasm of breast (principal); Z78.0 Asymptomatic menopausal state
CPT/HCPCS: 77063; 77067

== ENCOUNTER → 2024-09-20 | Outpatient (CLI) | payer MEDICARE ==
--- NOTE | 2024-09-20 13:23 | XR ---
EXAMINATION TYPE: XR chest 2V DATE OF EXAM: 09/20/2024 1:15 PM COMPARISON: Chest radiographs from 05/01/2024 CLINICAL INDICATION: Female, 54 years old with history of Acute Cough R05.1; [facility] TECHNIQUE: XR chest 2V Frontal and lateral views of the chest. FINDINGS: Lungs/Pleura: There is no evidence of pleural effusion, focal consolidation, or pneumothorax. Pulmonary vascularity: Unremarkable. Heart/mediastinum: Cardiomediastinal silhouette is unremarkable. Musculoskeletal: No acute osseous pathology. Midline sternotomy wires are noted. IMPRESSION: No acute cardiopulmonary disease/process. [facility], , 09/20/2024 1:21 PM
== END | disposition home or self-care (01) ==
LOC: RADXRMAIN 13:04
PROVIDERS: ATTEND Internal Medicine
DX: R05.1 Acute cough (principal)
CPT/HCPCS: 71046

== ENCOUNTER → 2024-12-11 | Outpatient (CLI) | payer MEDICARE ==
[2024-12-11 19:24] LABS: % Iron Saturation 5.34 (12.00-45.00); Ferritin 12.3 ng/mL (10.0-291.0)
[2024-12-12 13:27] LABS: Zinc, Serum 108 ug/dL (60-130)
== END | disposition home or self-care (01) ==
LOC: LABWHC1 15:18
PROVIDERS: ATTEND Internal Medicine
DX: D50.9 Iron deficiency anemia, unspecified (principal)
CPT/HCPCS: 36415; 82525; 82607; 82728; 82746; 83540; 83550; 84630

== ENCOUNTER → 2025-04-05 | Outpatient (CLI) | payer MEDICARE ==
--- NOTE | 2025-04-05 13:46 | XR ---
EXAMINATION TYPE: XR shoulder complete LT DATE OF EXAM: 04/05/2025 1:24 PM COMPARISON: None. CLINICAL INDICATION: Female, 55 years old with history of M25.512 pain L shoulder, pain TECHNIQUE: XR shoulder complete LT views were obtained FINDINGS: There is no acute fracture/dislocation evident. The acromioclavicular and glenohumeral joint spaces appear within normal limits. The visualized ribs are intact and unremarkable. IMPRESSION: There is no acute fracture or dislocation. [facility], , 04/05/2025 1:44 PM
== END | disposition home or self-care (01) ==
LOC: RADXRMAIN 13:05
DX: M25.512 Pain in left shoulder (principal)